=== PATIENT | female | born 1985 | race Caucasian/White ===

== ENCOUNTER 2020-09-13 08:28 | Outpatient (CLI) | payer BC ==
[2020-09-13 17:55] LABS: SARS-CoV-2 MS2 Positive; SARS-CoV-2 N Gene Negative; SARS-CoV-2 S Gene Negative; SARS-CoV-2 by NAA Not Detected (NotDetected); SARS-CoV-2 orf1ab Negative
== END 2020-09-13 08:29 | disposition home or self-care (01) ==
LOC: LABBT 08:28
PROVIDERS: ATTEND Obstetrics & Gynecology
DX: Z01.812 Encounter for preprocedural laboratory examination (principal); Z20.828 Contact with and (suspected) exposure to other viral communicable diseases
CPT/HCPCS: 87635; U0003

== ENCOUNTER 2020-09-16 05:39 | Inpatient (IN) | payer BC ==
[2020-09-16] MEDS ORDERED: Ondansetron PF 4 MG/2 ML Vial IVP PRN ×3 (06:29→08:55)
[2020-09-16] MEDS ORDERED: hydrALAZINE 20 MG/ML VIAL SLOW IVP PRN ×2 (06:29→08:55)
[2020-09-16] MEDS ORDERED: Lactated Ringer's 1,000 ML IV SCH (06:29)
[2020-09-16] MEDS ORDERED: Promethazine HCl 25 MG/ML VIAL IM PRN ×2 (06:29→08:46)
[2020-09-16] MEDS ORDERED: CEFAZOLIN 2 GM in Premix Bag 1 BAG IVPB SCH (06:29)
[2020-09-16] MEDS ORDERED: Bicitra 30 ML UDCUP PO SCH (06:29)
[2020-09-16 06:41] LABS: Hemoglobin 10.8 g/dL (12.0-16.0); Mean Corpuscular HGB CONC 34.3 g/dL (32.0-36.0); Mean Corpuscular Hemoglobin 28.9 pg (27.0-31.0); Mean Corpuscular Volume 84.2 fL (78.0-98.0); Mean Platelet Volume 7.6 fL (7.4-10.4); Platelet Count 239 thou/uL (130-400); RBC Distribution Width 14.1 % (11.5-14.5); Red Blood Cell (RBC) Count 3.74 mill/uL (4.20-5.40); White Blood Cell (WBC) Count 8.5 thou/uL (4.8-10.8)
[2020-09-16 06:42] VITALS: BMI 33.8
[2020-09-16] MEDS ORDERED: Morphine PF 10 MG/10 ML VIAL ONE (07:11)
[2020-09-16] MEDS ORDERED: Ondansetron PF 4 MG/2 ML Vial ONE (07:12)
[2020-09-16] MEDS ORDERED: PHENYLEPHRINE-NS 100 MCG/ML 10 ML SYRINGE ONE (07:12)
[2020-09-16] MEDS ORDERED: Oxytocin 10 UNITS/ML VIAL ONE (07:12)
[2020-09-16 07:23] LABS: HBSAg Index 0.18 S/CO (0-0.99); Hep B Surf Ag Non-Reactive S/CO (NonReactive); Syphilis Antibody Nonreactive (Nonreactive); Syphilis Antibody Index 0.05 S/CO (<1.00 Non-Reactive)
[2020-09-16] MEDS ORDERED: Ketorolac Tromethamine 30 MG/ML VIAL ONE (08:33)
[2020-09-16] MEDS ORDERED: Naloxone HCl 0.4 mg/ml Vial IV PRN (08:46)
[2020-09-16] MEDS ORDERED: Naloxone HCl 0.4 mg/ml Vial IVP PRN ×2 (08:46)
[2020-09-16] MEDS ORDERED: HYDROmorphone 2 MG/ML VIAL SLOW IVP PRN (08:46)
[2020-09-16] MEDS ORDERED: Meperidine HCl/PF 25 MG/ML VIAL SLOW IVP PRN (08:46)
[2020-09-16] MEDS ORDERED: Promethazine HCl 25 MG SUPP PR PRN (08:46)
[2020-09-16] MEDS ORDERED: Ondansetron HCl/PF 4 MG/2 ML Vial IVP PRN (08:46)
[2020-09-16] MEDS ORDERED: L&D-Morphine 4 MG/ML VIAL SLOW IVP PRN (08:46)
[2020-09-16] MEDS ORDERED: Lanolin Ointment 7 GM TUBE TOP PRN (08:55)
[2020-09-16] MEDS ORDERED: Bisacodyl 10 MG SUPP PR PRN (08:55)
[2020-09-16] MEDS ORDERED: Simethicone Chewable 80 MG TAB PO PRN (08:55)
[2020-09-16] MEDS ORDERED: Acetaminophen 325 MG TAB PO PRN (08:55)
[2020-09-16] MEDS ORDERED: Adacel (T-DAP) 0.5 ML SYRINGE IM ONE (08:55)
[2020-09-16] MEDS ORDERED: Zolpidem Tartrate 5 MG TAB PO PRN (08:55)
[2020-09-16] MEDS ORDERED: NS / Oxytocin 40 units/1000ml 1,000 ML IV SCH (09:00)
[2020-09-16] MEDS ORDERED: Communication Order-Pharmacy FS SCH (09:00)
[2020-09-16] MEDS ORDERED: Ketorolac Tromethamine 30 MG/ML VIAL IVP SCH (09:00)
[2020-09-16] MEDS: Prenatal Vitamin 1 TAB PO SCH (11:22)
[2020-09-16] MEDS: Docusate Calcium (SURFAK) 240 MG CAP PO SCH ×2 (11:22→22:47)
[2020-09-16] MEDS ORDERED: Sodium Chloride 0.9% 10 ML ONE ×3 (11:27→16:26)
[2020-09-16] MEDS: diphenhydrAMINE 50 MG/ML VIAL IVP PRN ×3 (12:15→20:59)
[2020-09-16] MEDS: Ketorolac Tromethamine 30 MG/ML VIAL IVP PRN ×2 (15:08→20:55)
[2020-09-16] MEDS: Ferrous Sulfate 325 MG TAB PO SCH (17:34)
[2020-09-16] MEDS ORDERED: Meperidine HCl/PF 25 MG/ML VIAL IM PRN (21:00)
[2020-09-17] MEDS ORDERED: Sodium Chloride 0.9% 10 ML ONE (03:42)
[2020-09-17] MEDS: Ketorolac Tromethamine 30 MG/ML VIAL IVP PRN (04:01)
[2020-09-17 07:03] LABS: Hemoglobin 9.5 g/dL (12.0-16.0); Mean Corpuscular HGB CONC 33.9 g/dL (32.0-36.0); Mean Corpuscular Hemoglobin 29.1 pg (27.0-31.0); Mean Corpuscular Volume 85.9 fL (78.0-98.0); Mean Platelet Volume 7.7 fL (7.4-10.4); Platelet Count 207 thou/uL (130-400); RBC Distribution Width 14.1 % (11.5-14.5); Red Blood Cell (RBC) Count 3.26 mill/uL (4.20-5.40); White Blood Cell (WBC) Count 9.4 thou/uL (4.8-10.8)
[2020-09-17] MEDS: Docusate Calcium (SURFAK) 240 MG CAP PO SCH ×2 (08:29→20:20)
[2020-09-17] MEDS: Ferrous Sulfate 325 MG TAB PO SCH ×2 (08:29→16:39)
[2020-09-17] MEDS: Prenatal Vitamin 1 TAB PO SCH (08:29)
[2020-09-17] MEDS: traMADol HCl 50 MG TAB PO PRN ×2 (10:48→18:37)
[2020-09-17] MEDS: Ibuprofen 800 MG TAB PO SCH ×2 (14:17→20:20)
[2020-09-18] MEDS: Ibuprofen 800 MG TAB PO SCH (04:34)
[2020-09-18 08:23] VITALS: BP 107/63; TEMP 98.1
[2020-09-18] MEDS: Prenatal Vitamin 1 TAB PO SCH (08:51)
[2020-09-18] MEDS: Docusate Calcium (SURFAK) 240 MG CAP PO SCH (08:51)
[2020-09-18] MEDS: Ferrous Sulfate 325 MG TAB PO SCH (08:51)
--- NOTE | 2020-09-18 10:27 | OP ---
DATE OF PROCEDURE: 09/16/2020 RESIDENT SURGEON: Emelyn Alonso MD PREOPERATIVE DIAGNOSES: 1. Term intrauterine at 39 weeks. 2. Prior section x2. POSTOPERATIVE DIAGNOSES: 1. Term intrauterine at 39 weeks. 2. Prior section x2. PROCEDURES PERFORMED: Repeat low transverse section. ANESTHESIA: Spinal catheterization. FINDINGS: 1. Scarring and adhesions secondary to previous x2, omentum to anterior abdominal wall, bilateral tubo-ovarian. 2. Vigorous male infant, 9 pounds 0 ounces, Apgars 9 and 9. 3. Normal uterus, tubes, and ovaries. COMPLICATIONS: None. SPECIMENS REMOVED: Cord blood. BLOOD LOSS: Approximately 500 mL (QBL 520 mL). DESCRIPTION OF PROCEDURE: After thorough consent and counseling, Ms. Sharma was taken to the operating room and adequate level of anesthesia was obtained via spinal catheterization. The patient was prepped and draped in usual sterile fashion for abdominal surgery. A Elaine was placed in the bladder, which was noted to be draining clear urine. A team time-out was performed. Attention was then turned to performing the repeat low-transverse section. A Pfannenstiel incision was made and the old scar was excised. The incision was carried sharply to the fascia, which was also sharply incised. The midline was identified and the rectus muscles were retracted laterally. The abdominal peritoneal cavity was entered with usual safeguards carried out. Once the abdomen was entered, there were adhesions noted from the omentum to the anterior abdominal wall and bilateral tubo-ovarian adhesions. The omental adhesions were taken down. A retractor was placed and a bladder flap was created on the vesicouterine peritoneum. A bladder blade was then placed. A low-transverse incision was made on the well-developed lower uterine segment. Upon entering the amniotic sac, a copious amount of clear amniotic fluid was visualized. The infant was noted to be vertex presentation in the occiput anterior position, still high in the pelvis. Head was delivered and baby was bulb suctioned on the abdomen. Shoulders and body were then delivered in an atraumatic fashion. The cord was doubly clamped and cut. The was handed to the pediatric team in attendance for the delivery. The infant was a vigorous viable male, weighing 9 pounds 0 ounces with Apgars of 9 and 9 obtained at one and five minutes respectively. Cord blood was obtained. The placenta was manually removed from the uterus. The uterus was exteriorized and good tone was noted. The low-transverse incision was closed with a running locking ligature of #1 chromic. A second imbricating layer was placed to facilitate strength and hemostasis. The vesicouterine peritoneum was reapproximated with running ligature of 2-0 Monocryl suture. The posterior cul-de-sac and gutters were cleared of clot and fluid. Seprafilm was applied to the low-transverse incision and to the anterior aspect of the uterus. The uterus was returned to the abdomen and good tone and hemostasis were again noted. Lap, sponge, and needle counts were correct. The peritoneum was closed with a running ligature of 2-0 Vicryl. The rectus muscles were reapproximated in the midline with interrupted ligatures of 2-0 Vicryl and #1 chromic suture. The fascia was then closed with 2 ligatures of 0 Vicryl suture, which was tied in the midline. Good fascial integrity was appreciated. The incision was irrigated with copious amount of warm normal saline. Hemostasis was obtained with Bovie cauterization. The subcutaneous tissue was closed with interrupted ligatures of 2-0 plain suture. The skin was closed with subcuticular stitch of 4-0 Monocryl and dressed with Dermabond. A pressure dressing and ice packs were subsequently placed. Lap, sponge, and needle counts were correct x3. Estimated blood loss during the surgical procedure was approximately 500 mL. QBL pending. Team debriefing was performed. The patient was taken to recovery room in good condition. Immediately following surgery, the patient and family were made aware of the surgical procedure and operative findings. Questions were answered to their satisfaction. The baby was returned to mother in the recovery room for [id number] contact and . The patient and her were very appreciative of the care rendered here at [facility] this morning. Job ID: [id number]
[2020-09-18] MEDS: traMADol HCl 50 MG TAB PO PRN (11:28)
== END 2020-09-18 12:40 | disposition home or self-care (01) | DRG 788 ==
LOC: L&D 05:39 → 3SW 11:21
PROVIDERS: ADMIT Obstetrics & Gynecology; ATTEND Obstetrics & Gynecology
PROC: 10D00Z1 Extraction of Products of Conception, Low, Open Approach (ICD-10-PCS; principal; 2020-09-17)
DX: O34.211 Maternal care for low transverse scar from previous cesarean delivery (principal); O99.62 Diseases of the digestive system complicating childbirth; O99.892 Other specified diseases and conditions complicating childbirth; K66.0 Peritoneal adhesions (postprocedural) (postinfection); Z20.828 Contact with and (suspected) exposure to other viral communicable diseases; Z3A.39 39 weeks gestation of pregnancy; Z37.0 Single live birth
CPT/HCPCS: 36415; 51702; 85027; 86780; 86850; 86900; 86901; 87340; 87635; J0690; J1200; J1885; J2270; J2405; U0003